=== PATIENT | female | born 2005 | race Hispanic/Latino ===

== ENCOUNTER → 2024-04-07 07:31 | Outpatient (CLI) | payer OTHER, SELFPAY ==
--- NOTE | 2024-04-07 07:33 | DI.US.S_ITS ---
PROCEDURE: US THYROID INDICATIONS: THYROID NODULE TECHNIQUE: Real-time scanning was performed of the thyroid gland, with image documentation. COMPARISON: None. FINDINGS: Thyroid: Right lobe measures 4.6 x 1.5 x 1.6 cm. Left lobe measures 4.9 x 1.6 x 1.5 cm. Isthmus is 0.2 cm thick. Echotexture is homogeneous. Nodule number: 1 Location: Right inferior Size: 1.8 x 1.2 x 1.3 cm. Composition: Cystic Echogenicity: Anechoic Shape: wider than tall. Margins: Smooth Echogenic foci: None Total points: 0 ACR TI-RADS category: 1 IMPRESSION: Right inferior nodule which is TIRADS-1. No dedicated follow-up needed. ACR TI-RADS definitions and recommendations: TI-RADS 1 (benign): 0 points. FNA not needed. TI-RADS 2 (not suspicious): 2 points. FNA not needed. TI-RADS 3 (mildly suspicious): 3 points. * FNA if 2.5 cm or larger, follow up if 1.5 cm or larger (at 1, 3, and 5 years). TI-RADS 4 (moderately suspicious): 4-6 points. * FNA if 1.5 cm or larger, follow up if 1 cm or larger (at 1, 2, 3, and 5 years). TI-RADS 5 (highly suspicious): 7 points or more. * FNA if 1 cm or larger, follow up if 0.5 cm or larger (every year for 5 years). Dictated by: Juan Mazariegos M.D. on 04/07/2024 at 17:17 Approved by: Juan Mazariegos M.D. on 04/07/2024 at 17:18
== END ==
PROVIDERS: Referring Provider Nurse Practitioner Family; Visit Provider Nurse Practitioner Family
DX: E04.1 Nontoxic single thyroid nodule (principal)
CPT/HCPCS: 76536

== ENCOUNTER 2024-11-15 15:33 | Emergency (ER) | payer OTHER, SELFPAY ==
[2024-11-15 15:56] VITALS: BP 108/75; PULSE 71; RESP 16; TEMP 37.1; O2SAT 100; BMI 25.4
[2024-11-15 16:19] LABS: Add Manual Diff / Slide Review NO; Basophils Absolute Auto 100 /uL (0-100); Basophils Percent Auto 0.6 % (0-2); Eosinophils Absolute Auto 100 /uL (0-450); Eosinophils Percent Auto 1.4 % (2-4); Hematocrit 41.7 % (36-46); Lymphocytes Absolute Auto 2300 /uL (1100-4500); Lymphocytes Percent Auto 26.1 % (25-40); Mean Corpuscular HGB Conc 33.7 % (30-36); Mean Corpuscular Hemoglobin 29.7 PG (26-34); Mean Corpuscular Volume 88.2 fL (80-100); Monocytes Absolute Auto 500 /uL (0-900); Monocytes Percent Auto 5.8 % (3-14); Neutrophils Absolute Auto 5800 /uL (1500-7000); Neutrophils Percent Auto 66.1 % (50-75); Platelet Count 247 X10^3/uL (150-400); Red Blood Cell Count 4.73 X10^6/uL (4.0-5.2); Red Cell Distribution Width 13.3 % (11.6-14.8); White Blood Cell Count 8.8 X10^3/uL (4.5-11.0)
[2024-11-15 16:29] LABS: Alanine Aminotransferase 19 IU/L (<35); Albumin 4.5 g/dL (3.5-5.0); Albumin Globulin Ratio 1.5 (1.0-2.8); Alkaline Phosphatase 55 U/L (38-126); Aspartate Aminotransferase 30 IU/L (14-36); BUN Creatinine Ratio 24.7 (6-22); Bilirubin Total 0.5 mg/dL (0.2-1.3); Blood Urea Nitrogen 21 mg/dL (7-17); Calcium 9.7 mg/dL (8.4-10.2); Carbon Dioxide 25 mmol/L (22-32); Chloride 106 mmol/L (98-107); Estimated Glomerular Filt Rate > 60 mL/min (>60); Glucose 76 mg/dL (70-100); HEMOLYSIS < 15 (0-50); Lipase 81 U/L (23-300); Potassium 4.1 mmol/L (3.4-5.1); Sodium 138 mmol/L (137-145); Total Protein 7.5 g/dL (6.3-8.2)
--- NOTE | 2024-11-15 18:27 | ED_ITS ---
HPI - General Adult General Chief complaint: Abdominal Pain Stated complaint: Abd pain Time Seen by Provider: 11/15/24 18:17 Source: patient Mode of arrival: Ambulatory History of Present Illness HPI narrative: 19-year-old female complains of left lateral chest discomfort for 3 days, worse with inspiration and movements and changes in position. No trauma or injury recalled. No cough fevers or chills. She does not have shortness of breath. No dysuria or frequency of urination. No bloody urine. No diarrhea or black or red stools. No nausea or vomiting. No treatments tried. She is awaiting dental surgery tomorrow, not currently taking any antibiotics. Related Data Allergies Allergy/AdvReac Type Severity Reaction Status Date / Time No Known Drug Allergies Allergy Verified 11/15/24 16:00 Patient History Social History Smoking Status: Never smoker Smoking Status: Never smoker Exam Narrative Exam Narrative: GENERAL: Well-developed patient, in mild distress. HEAD: Atraumatic. Normocephalic. EYES: Pupils equal round and reactive. Extraocular motions intact. No scleral icterus. No injection or drainage. ENT: Nose without bleeding, purulent drainage. Throat without erythema, tonsillar hypertrophy or exudate. Airway patent. NECK: Trachea midline. Non tender CARDIOVASCULAR: Regular rate and rhythm without murmurs, gallops, or rubs. RESPIRATORY: Clear to auscultation. Breath sounds equal bilaterally. No wheezes, rales, or rhonchi. Tenderness to left lateral lower chest, proximally 2-3 fingers above costal margin midclavicular line, no skin changes, no vesicles, no bruising, no crepitance. GASTROINTESTINAL: Abdomen soft, non-tender, nondistended. EXTREMITIES: No edema or joint tenderness. BACK: Nontender without deformity or crepitance. No flank tenderness. NEURO: AOx3. Motor functions grossly nonfocal SKIN: No rash or erythema of visible areas Initial Vital Signs Initial Vital Signs: Vital Signs Temperature 98.8 F 11/15/24 15:56 Pulse Rate 71 11/15/24 15:56 Respiratory Rate 16 11/15/24 15:56 Blood Pressure 108/75 11/15/24 15:56 Pulse Oximetry 100 11/15/24 15:56 Oxygen Delivery Method Room Air 11/15/24 15:56 Course Orders Ordered: ED Orders 11/15/24 18:29 XR ribs LT min 3V w CXR1V Stat Discontinued Medications Ketorolac Tromethamine (Ketorolac 30 Mg/Ml Vial) 15 mg IV NOW ONE Stop: 11/15/24 18:29 Last Admin: 11/15/24 18:37 Dose: 15 mg Documented By: ELADIO Ondansetron HCl (Ondansetron 4 Mg/2 Ml Inj) 4 mg IV NOW PRN PRN Reason: Nausea And Vomiting Ondansetron HCl (Ondansetron 4 Mg Odt) 4 mg PO NOW PRN PRN Reason: Nausea And Vomiting Vital Signs Vital signs: Vital Signs - 8 hr 11/15/24 20:07 Temperature 98.6 F Pulse Rate 69 Respiratory Rate 20 Blood Pressure 112/68 Pulse Oximetry 100 Oxygen Delivery Method Room Air Medical Decision Making Lab Data Lab results reviewed: Yes I reviewed the patient's lab results. Lab results narrative: White blood cell count 8800, hemoglobin 14, platelets adequate. Basic metabolic panel unremarkable. Liver functions and lipase normal. Urine hCG negative. 11/15/24 16:00 11/15/24 16:00 Labs: Lab Results 11/15/24 Range/Units 16:00 WBC 8.8 (4.5-11.0) X10^3/uL RBC 4.73 (4.0-5.2) X10^6/uL Hgb 14.0 (12.0-16.0) g/dL Hct 41.7 (36-46) % MCV 88.2 (80-100) fL MCH 29.7 (26-34) PG MCHC 33.7 (30-36) % RDW 13.3 (11.6-14.8) % Plt Count 247 (150-400) X10^3/uL Neut % (Auto) 66.1 (50-75) % Lymph % (Auto) 26.1 (25-40) % [place] % (Auto) 5.8 (3-14) % Eos % (Auto) 1.4 L (2-4) % Baso % (Auto) 0.6 (0-2) % Neut # (Auto) 5800 (7545-5716) /uL Lymph # (Auto) 2300 (4985-2290) /uL [place] # (Auto) 500 (0-900) /uL Eos # (Auto) 100 (0-450) /uL Baso # (Auto) 100 (0-100) /uL Sodium 138 (137-145) mmol/L Potassium 4.1 (3.4-5.1) mmol/L Chloride 106 (98-107) mmol/L Carbon Dioxide 25 (22-32) mmol/L BUN 21 H (7-17) mg/dL Creatinine 0.85 (0.52-1.04) mg/dL Estimated GFR > 60 (>60) mL/min BUN/Creatinine Ratio 24.7 H (6-22) Glucose 76 (70-100) mg/dL Calcium 9.7 (8.4-10.2) mg/dL Total Bilirubin 0.5 (0.2-1.3) mg/dL AST 30 (14-36) IU/L ALT 19 (<35) IU/L Alkaline Phosphatase 55 (38-126) U/L Total Protein 7.5 (6.3-8.2) g/dL Albumin 4.5 (3.5-5.0) g/dL Globulin 3.0 (1.7-4.1) g/dL Albumin/Globulin Ratio 1.5 (1.0-2.8) Lipase 81 (23-300) U/L Point of Care Testing Test Results Negative Urine Dip Bedside Urine Glucose Negative Bedside Urine Bilirubin - Negative Bedside Urine Ketone - Negative Urine Specific [place] 1.020 Bedside Urine Occult Blood - Negative Bedside Urine pH 6.0 Bedside Urine Protein - Negative Bedside Urine Urobilinogen - Negative Bedside Urine Nitrite - Negative Bedside Urine Leukocytes - Negative Esterase Point of care testing: Point of Care Testing Test Results Negative Urine Dip Bedside Urine Glucose Negative Bedside Urine Bilirubin - Negative Bedside Urine Ketone - Negative Urine Specific [place] 1.020 Bedside Urine Occult Blood - Negative Bedside Urine pH 6.0 Bedside Urine Protein - Negative Bedside Urine Urobilinogen - Negative Bedside Urine Nitrite - Negative Bedside Urine Leukocytes - Negative Esterase Imaging Data Chest x-ray: Radiologist's Impression: [address] [address] XRay Report Signed Patient: Linh Lopez MR#: [id number] : 2005 Acct:[id number] Age/Sex: 19 / F Date of Service: 11/15/24 Loc: ED Accession Number: [id number] Procedure: XR ribs LT min 3V w CXR1V Ordering Provider: Edu Gonzalez MD PROCEDURE: XR RIBS LT MIN 3V W CXR1V INDICATIONS: left lateral rib pain, worse with deep breathe, movement TECHNIQUE: 2 views of the ribs were acquired, along with a single view chest. COMPARISON: None. FINDINGS: Surgical changes and devices: None. Bones and chest wall: No displaced fracture is seen. Lungs and pleura: No dense consolidation or pleural effusion. Mediastinum: Normal heart size IMPRESSION: No acute displaced fracture. No dislocation. If there is high concern for occult injury, consider repeat radiography or cross-sectional imaging. Dictated by: James Kenny M.D. on 11/15/2024 at 18:01 Approved by: James Kenny M.D. on 11/15/2024 at 18:04 [facility] Narrative Medical decision making narrative: 19-year-old female with left lateral chest discomfort, focal tenderness on palpation to the rib area, proximally 2-3 fingers above the costal margin, no left upper quadrant abdominal tenderness, no CVA tenderness, no skin changes. Normal breath sounds, no respiratory distress, normal oxygenation on room air. Screening labs sent from triage, hCG negative, white blood cell count normal, liver functions and lipase unremarkable. Urine dip negative. Chest x-ray with left rib series ordered. Chest x-ray with left rib series unremarkable, no infiltrates or injury patterns or acute changes noted. See radiology report. IV Toradol given, some improvement in symptoms. She is awaiting dental procedure tomorrow, molar extraction. Declines opiate pain medication for now, she is afraid that might interfere with anesthesia decision tomorrow for her dental procedure, and states she likely will be receiving postprocedure opiate pain medication tomorrow. She is willing to continue taking [id number] ibuprofen for now. Copy of her chest x-ray report given to present to her providers tomorrow if it might alter their decision to proceed with dental procedure, does not seem likely so. Follow up with her dental procedure tomorrow. We discussed advanced imaging that might include CT abdomen and pelvis, CT chest imaging, he has not seem indicated at this time, patient feels comfortable declining this at this time. Regarding her chest pain encouraged to recheck if she has persistent symptoms next 2-3 days. Earlier recheck if any change worsening symptoms or any concerns prior Discharge Plan Departure Patient Disposition: Home Clinical Impression: Chest wall pain Activity Restrictions/Additional Instructions: Left lateral chest wall pain with focal area of tenderness on palpation, no bruising or rash or skin changes on examination, with clear lungs, no respiratory distress, normal oxygenation on room air. Chest x-ray with additional views left ribs was unremarkable, no injury patterns, no pneumonia, no acute changes were noted, per Radiology report. IV Toradol given anti- inflammatory medication. Consider use of ibuprofen to help with control of pain symptoms. You were awaiting dental procedure tomorrow, let them know you had chest discomfort with x-rays that were reassuring, hopefully that will not alter their plan to continue their procedure. You did not seem to have any abdominal tenderness or tenderness below the left costal margin of the your upper abdomen. We did discuss advanced imaging CT scanning of the chest and/or abdomen, likely not worth the risks of radiation and low yield for now, hold the studies for now. Likely you will be receiving pain medication postoperative tomorrow, fill that prescription and use as needed. Regarding your chest discomfort consider recheck if not improving in the next 2-3 days. Return to this/nearest emergency department for any change worsening symptoms or any concerns prior Stand Alone Forms: Patient Portal/API/Survey
[2024-11-15] MEDS: KETOROLAC 30 MG/ML VIAL 15 MG IV (18:37)
[2024-11-15 20:07] VITALS: BP 112/68; PULSE 69; RESP 20; TEMP 37; O2SAT 100
== END 2024-11-15 20:14 | disposition home or self-care (01) ==
PROVIDERS: Emergency Medicine; Emergency Provider Emergency Medicine
DX: R07.89 Other chest pain (principal)
CPT/HCPCS: 36415; 71101; 80053; 81003; 81025; 83690; 85025; 96374; 99284; J1885

== ENCOUNTER 2025-03-29 16:55 | Emergency (ER) | payer OTHER, SELFPAY ==
[2025-03-29 17:12] VITALS: BP 133/74; PULSE 72; RESP 18; TEMP 36.6; O2SAT 98; BMI 24.1
[2025-03-29 17:32] LABS: Add Manual Diff / Slide Review NO; Basophils Absolute Auto 100 /uL (0-100); Eosinophils Absolute Auto 100 /uL (0-450); Eosinophils Percent Auto 1.6 % (2-4); Hematocrit 38.8 % (36-46); Hemoglobin 13.2 g/dL (12.0-16.0); Lymphocytes Absolute Auto 2100 /uL (1100-4500); Lymphocytes Percent Auto 37.2 % (25-40); Mean Corpuscular Hemoglobin 29.7 PG (26-34); Mean Corpuscular Volume 87.4 fL (80-100); Monocytes Absolute Auto 500 /uL (0-900); Neutrophils Absolute Auto 3000 /uL (1500-7000); Neutrophils Percent Auto 52.2 % (50-75); Platelet Count 236 X10^3/uL (150-400); Red Blood Cell Count 4.44 X10^6/uL (4.0-5.2); Red Cell Distribution Width 13.1 % (11.6-14.8); White Blood Cell Count 5.7 X10^3/uL (4.5-11.0)
[2025-03-29 17:41] LABS: Alanine Aminotransferase 22 IU/L (<35); Albumin 4.2 g/dL (3.5-5.0); Albumin Globulin Ratio 1.4 (1.0-2.8); Alkaline Phosphatase 49 U/L (38-126); Aspartate Aminotransferase 34 IU/L (14-36); BUN Creatinine Ratio 18.2 (6-22); Bilirubin Total 0.4 mg/dL (0.2-1.3); Blood Urea Nitrogen 16 mg/dL (7-17); Calcium 9.3 mg/dL (8.4-10.2); Carbon Dioxide 26 mmol/L (22-32); Chloride 105 mmol/L (98-107); Estimated Glomerular Filt Rate > 60 mL/min (>60); Glucose 85 mg/dL (70-99); HEMOLYSIS < 15 (0-50); Lipase 64 U/L (23-300); Potassium 3.7 mmol/L (3.4-5.1); Sodium 137 mmol/L (137-145); Total Protein 7.2 g/dL (6.3-8.2)
--- NOTE | 2025-03-30 01:01 | ED_ITS ---
HPI - Abdominal Pain General Chief Complaint: Abdominal Pain Stated Complaint: abd px Time Seen by Provider: 03/29/25 23:16 Source: patient Mode of arrival: Ambulatory History of Present Illness HPI narrative: Patient is a 20-year-old healthy female presenting today with a epigastric pain. She reports that they started her on 1145 lasted for about an hour or 2 she threw up 1 or 2 times and now it has completely resolved. She has been in the emergency department for 8 hours without recurrence of pain. No significant chest pain. No lower abdominal pain. No other symptoms. It has not happened to her previously. No diarrhea Related Data Home Medications Medication Instructions Recorded Confirmed No Known Home Medications 03/29/25 03/29/25 Allergies Allergy/AdvReac Type Severity Reaction Status Date / Time No Known Drug Allergies Allergy Verified 03/29/25 17:16 Patient History Social History Smoking Status: Never smoker Smoking Status: Never smoker Exam Initial Vital Signs Initial Vital Signs: Vital Signs Temperature 97.8 F 03/29/25 17:12 Pulse Rate 72 03/29/25 17:12 Respiratory Rate 18 03/29/25 17:12 Blood Pressure 133/74 03/29/25 17:12 Pulse Oximetry 98 03/29/25 17:12 Oxygen Delivery Method Room Air 03/29/25 17:12 GENERAL: Alert well-appearing 20-year-old female no acute distress and in no acute distress. HEENT: Head atraumatic,EOMI, pupils reactive, face symmetric, moist mucous membranes CARDIOVASCULAR: Regular rate and rhythm without murmurs, rubs or gallops. RESPIRATORY: Breath sounds equal bilaterally, no wheezes rales or rhonchi. ABDOMEN: Soft, nontender. Normoactive bowel sounds all 4 quadrants. No guarding or rebound. Negative Dallas's sign minimal epigastric pain no peritoneal signs EXTREMITIES: Normal range of motion, no clubbing or edema. Neurovascularly intact NEUROLOGICAL: Alert and oriented x4.Normal gait and speech. Cranial nerves II through XII grossly intact. SKIN: Warm, dry, no laceration, no petechiae, no rashes or lesions. Course Orders Ordered: Discontinued Medications Ondansetron HCl (Ondansetron 4 Mg/2 Ml Inj) 4 mg IV NOW PRN PRN Reason: Nausea And Vomiting Ondansetron HCl (Ondansetron 4 Mg Odt) 4 mg PO NOW PRN PRN Reason: Nausea And Vomiting Vital Signs Vital signs: Vital Signs - 8 hr 03/30/25 01:18 Pulse Rate 68 Respiratory Rate 16 Blood Pressure 128/72 Pulse Oximetry 100 Oxygen Delivery Method Room Air MDM - Abdominal Pain Lab Data 03/29/25 17:20 03/29/25 17:20 Labs: Lab Results 03/29/25 Range/Units 17:20 WBC 5.7 (4.5-11.0) X10^3/uL RBC 4.44 (4.0-5.2) X10^6/uL Hgb 13.2 (12.0-16.0) g/dL Hct 38.8 (36-46) % MCV 87.4 (80-100) fL MCH 29.7 (26-34) PG MCHC 34.0 (30-36) % RDW 13.1 (11.6-14.8) % Plt Count 236 (150-400) X10^3/uL Neut % (Auto) 52.2 (50-75) % Lymph % (Auto) 37.2 (25-40) % [place] % (Auto) 8.0 (3-14) % Eos % (Auto) 1.6 L (2-4) % Baso % (Auto) 1.0 (0-2) % Neut # (Auto) 3000 (3493-6627) /uL Lymph # (Auto) 2100 (8300-3590) /uL [place] # (Auto) 500 (0-900) /uL Eos # (Auto) 100 (0-450) /uL Baso # (Auto) 100 (0-100) /uL Sodium 137 (137-145) mmol/L Potassium 3.7 (3.4-5.1) mmol/L Chloride 105 (98-107) mmol/L Carbon Dioxide 26 (22-32) mmol/L BUN 16 (7-17) mg/dL Creatinine 0.88 (0.52-1.04) mg/dL Estimated GFR > 60 (>60) mL/min BUN/Creatinine Ratio 18.2 (6-22) Glucose 85 (70-99) mg/dL Calcium 9.3 (8.4-10.2) mg/dL Total Bilirubin 0.4 (0.2-1.3) mg/dL AST 34 (14-36) IU/L ALT 22 (<35) IU/L Alkaline Phosphatase 49 (38-126) U/L Total Protein 7.2 (6.3-8.2) g/dL Albumin 4.2 (3.5-5.0) g/dL Globulin 3.0 (1.7-4.1) g/dL Albumin/Globulin Ratio 1.4 (1.0-2.8) Lipase 64 (23-300) U/L Point of care testing: Point of Care Testing Test Results Negative Urine Dip Bedside Urine Glucose Negative Bedside Urine Bilirubin - Negative Bedside Urine Ketone - Negative Urine Specific [place] 1.015 Bedside Urine Occult Blood - Negative Bedside Urine pH 6.0 Bedside Urine Protein - Negative Bedside Urine Urobilinogen - Negative Bedside Urine Nitrite - Negative Bedside Urine Leukocytes - Negative Esterase MDM Narrative Medical decision making narrative: Patient healthy 20-year-old female presents today with epigastric pain and vomiting which started earlier in the day lasting for about 1-2 hours now completely resolved. No further vomiting no diarrhea abdomen is soft and nontender no peritoneal signs negative Dallas's sign Blood work has been reviewed No leukocytosis no anemia Electrolytes within normal limits no EARL Bilirubin liver enzymes lipase all within normal limits At this time no need for imaging. Although I did discuss with patient if continues to happened may need ultrasound of gallbladder. Possible cholelithiasis. No concern for ascending cholangitis or acute cholecystitis he has no fever in his nontender Discharge Plan Departure Patient Disposition: Home Clinical Impression: Abdominal pain Instructions: DI for Abdominal Pain-Adult Activity Restrictions/Additional Instructions: *You have been diagnosed with abdominal pain *What to do: At this time blood work is overall reassuring if you continue to have pain you may require ultrasound of your gallbladder *Continue to take medications as directed Tylenol Motrin as needed for pain *Follow up with your primary care provider in 2-3 days or call [phone] *Return to ER if you should have increasing pain persistent vomiting. or any new, worsening or concerning symptoms Prescriptions: No Action No Known Home Medications Referrals: ProviderSteffi [Primary Care Provider] - Stand Alone Forms: Patient Portal/API/Survey, Work Release Note
[2025-03-30 01:18] VITALS: BP 128/72; PULSE 68; RESP 16; O2SAT 100
== END 2025-03-30 01:19 | disposition home or self-care (01) ==
PROVIDERS: Emergency Medicine; Emergency Provider Emergency Medicine
DX: R10.13 Epigastric pain (principal)
CPT/HCPCS: 80053; 81003; 81025; 83690; 85025; 99282; 99283